=== PATIENT | male | born 1970 | race Caucasian/White ===

== ENCOUNTER 2023-07-12 11:31 | Emergency (ER) | payer OTHER ==
[~2023-07-12] VITALS: Ht 175.3 cm; Wt 93.0 kg
[2023-07-12 11:50] VITALS: BP 151/91
== END 2023-07-12 13:00 | disposition home or self-care (01) ==
LOC: ER 11:31
DX: S22.31XA Fracture of one rib, right side, initial encounter for closed fracture (principal); W00.0XXA Fall on same level due to ice and snow, initial encounter
CPT/HCPCS: 71046; 99283-25